=== PATIENT | male | born 1950 | race Caucasian/White ===

== ENCOUNTER 2017-10-19 12:55 | Emergency (ER) | payer MEDICARE, MEDICAID ==
[2017-10-19 13:12] VITALS: TEMP 98.1; O2SAT 99
--- NOTE | 2017-10-19 13:44 | C.PDOC ---
History Of Present Illness 67 yo male come in for evaluation of Left sided neck pain gradually developed for past 2 months. Pt reports, pain is localized over lateral aspect Left side of neck radiating down to upper back and left arm, worse with movement. Otherwise, pt denies any known direct trauma or injury, headache, dizziness, visual changes, focal deficits, CP, SOB, dyspnea, diaphoresis, palpitation, denies weakness, sensory or vascular deficits to B/L UEs. Ambulate to Ed for evaluation, not in any apparent distress. Time Seen by Provider: 10/19/17 13:13 Chief Complaint (Nursing): Upper Extremity Problem/Injury Past Medical History Vital Signs: Last Vital Signs Temp 98.1 F 10/19/17 13:11 Pulse 61 10/19/17 14:49 Resp 20 10/19/17 14:49 BP 131/85 10/19/17 14:49 Pulse Ox 99 10/19/17 14:49 - Medical History PMH: Benign Prostatic Hyperplasia Family History: States: Unknown Family Hx - Social History Hx Tobacco Use: No Hx Alcohol Use: Yes Hx Substance Use: No - Immunization History Hx Tetanus Toxoid Vaccination: No Hx Influenza Vaccination: No Hx Pneumococcal Vaccination: No Physical Exam - Physical Exam Appears: Well, Non-toxic, No Acute Distress Skin: Normal Color, Warm, Dry, No Rash Head: Normacephalic Eye(s): bilateral: PERRL Nose: No Flaring, No Discharge Oral Mucosa: Moist, No Drooling Throat: No Drooling Neck: Normal ROM, No Decreased ROM, Trachea Midline, No Midline Cervical Tenderness, No Step Off Deformity, Supple, Other (tenderness left lateral neck over trapezium muscle with mod spasm. no midline tenderness, no skin changes.) Cardiovascular: Rhythm Regular Respiratory: No Decreased Breath Sounds, No Accessory Muscle Use, No Stridor, No Wheezing Gastrointestinal/Abdominal: Soft, No Tenderness, No Distention, No Guarding Back: No CVA Tenderness, No Vertebral Tenderness, No Paraspinal Tenderness Extremity: Normal ROM, No Tenderness, No Deformity, No Swelling Neurological/Psych: Oriented x3, Normal Speech, Normal Motor, Normal Sensation, Normal Reflexes ED Course And Treatment O2 Sat by Pulse Oximetry: 99 Pulse Ox Interpretation: Normal - CT Scan/US C-SPINE CT Other Rad Studies (CT/US): Radiology Report Reviewed CT/US Interpretation: PROCEDURE: CT Cervical Spine without contrast. HISTORY: neck pain, L>R. COMPARISON: None available. TECHNIQUE: Axial computed tomography images were obtained of the cervical spine without the use of intravenous contrast. Coronal and sagittal reformatted images were created and reviewed. Radiation dose: Total exam DLP = 577.13 mGy-cm. This CT exam was performed using one or more of the following dose reduction techniques: Automated exposure control, adjustment of the mA and/or kV according to patient size, and/or use of iterative reconstruction technique. FINDINGS: VERTEBRAE: Vertebral bodies maintained in height. Normal alignment maintained. Atlantoaxial articulation and odontoid process are intact. DISCS/SPINAL CANAL/ NEURAL FORAMINA: Multi levels severe degenerative disc disease C4-5 through C7- T1. Mild central spinal stenosis C5-6. No evidence of disc herniation. PARASPINAL SOFT TISSUES: Unremarkable. OTHER FINDINGS: None. IMPRESSION: No fracture/ dislocation. Multilevel degenerative disc disease. Mild spinal stenosis C5-6. Progress Note: On re-evaluation, pt is afebrile, hemodynamicaly stable. Non- toxic. head: AT/NC. neck: Supple, (-) midline tenderness. Neuorlogicaly intact. CT results review (+) DJD, no acute finding. Pt has clinical findings c/w crvical radiculopathy. muscle straine. Pt advised. ref. to f/u with PMD, ortho, PM in 2-3 days for re-eval. return to ED if any worsening or new changes. Disposition Counseled Patient/Family Regarding: Studies Performed, Diagnosis, Need For Followup - Disposition Referrals: Vivian Osorio MD [Medical Doctor] - Disposition: HOME/ ROUTINE Disposition Time: 14:26 Condition: STABLE Additional Instructions: Take medication as prescribed Follow up with PMD, Orthopedist in 2-3 days for re-evaluation. return to ED if any worsening or new changes. Prescriptions: Ibuprofen [Motrin Tab] 600 mg PO BID #14 tab Methocarbamol [Robaxin] 500 mg PO TID #20 tab Instructions: Radiculopathy, Neck Pain Forms: [employer] (Luxembourger) - Clinical Impression Clinical Impression: Cervical radiculopathy, Cervical strain
[2017-10-19 14:49] VITALS: BP 131/85; PULSE 61; RESP 20
--- NOTE | 2017-10-19 15:01 | CT ---
PROCEDURE: CT Cervical Spine without contrast HISTORY: neck pain, L>R COMPARISON: None available. TECHNIQUE: Axial computed tomography images were obtained of the cervical spine without the use of intravenous contrast. Coronal and sagittal reformatted images were created and reviewed. Radiation dose: Total exam DLP = 577.13 mGy-cm. This CT exam was performed using one or more of the following dose reduction techniques: Automated exposure control, adjustment of the mA and/or kV according to patient size, and/or use of iterative reconstruction technique. FINDINGS: VERTEBRAE: Vertebral bodies maintained in height. Normal alignment maintained. Atlantoaxial articulation and odontoid process are intact. DISCS/SPINAL CANAL/NEURAL FORAMINA: Multi levels severe degenerative disc disease C4-5 through C7-T1. Mild central spinal stenosis C5-6. No evidence of disc herniation. PARASPINAL SOFT TISSUES: Unremarkable. OTHER FINDINGS: None. IMPRESSION: No fracture/ dislocation. Multilevel degenerative disc disease. Mild spinal stenosis C5-6.
== END 2017-10-19 15:09 | disposition home or self-care (01) ==
LOC: C.ER 12:55
DX: M54.12 Radiculopathy, cervical region (principal); S16.1XXA Strain of muscle, fascia and tendon at neck level, initial encounter; X58.XXXA Exposure to other specified factors, initial encounter

== ENCOUNTER 2018-08-02 09:33 | Emergency (ER) | payer BC, MEDICAID, MEDICARE ==
--- NOTE | 2018-08-02 09:41 | C.PDOC ---
History Of Present Illness 67 y/o male presents to the ED for evaluation of rash for 1 month. Patient states initially rash began at the left lower abdominal wall, and is now scattered in patches to the right thigh/lower leg, and right chest wall. Initial rash location is unchanged from beginning. He reports +itching. Also complains of similar rash and itchiness to testicular area. No fevers or chills. No other complaints. Time Seen by Provider: 08/02/18 09:38 Chief Complaint (Nursing): Abnormal Skin Integrity History Per: Patient History/Exam Limitations: no limitations Onset/Duration Of Symptoms: Days Current Symptoms Are (Timing): Still Present Location Of Injury: Right: Chest, Leg, Left: Abdomen Quality Of Symptoms: Itching Past Medical History Reviewed: Historical Data, Nursing Documentation, Vital Signs - Medical History PMH: Benign Prostatic Hyperplasia Family History: States: Unknown Family Hx - Social History Hx Tobacco Use: No Hx Alcohol Use: Yes Hx Substance Use: No - Immunization History Hx Tetanus Toxoid Vaccination: No Hx Influenza Vaccination: No Hx Pneumococcal Vaccination: No Review Of Systems Constitutional: Negative for: Fever, Chills Gastrointestinal: Negative for: Abdominal Pain Genitourinary: Negative for: Dysuria, Hematuria Musculoskeletal: Negative for: Back Pain Skin: Positive for: Rash (to abdomen, chest wall, and leg) Neurological: Negative for: Weakness, Numbness Physical Exam - Physical Exam Appears: Non-toxic, No Acute Distress Skin: Warm, Rash (Scattered lesions consistent w/ tinea corporis) Head: Atraumatic, Normacephalic Eye(s): bilateral: Normal Inspection, PERRL, EOMI Neck: Normal ROM Chest: Symmetrical Respiratory: No Accessory Muscle Use, Other (NARD) Extremity: Bilateral: Atraumatic, Normal ROM Neurological/Psych: Oriented x3, Normal Speech ED Course And Treatment O2 Sat by Pulse Oximetry: 100 (RA) Pulse Ox Interpretation: Normal Medical Decision Making Medical Decision Making: Impression: Tinea Patient is stable for discharge home. Counseled regarding diagnosis and treatment plan. Disposition Counseled Patient/Family Regarding: Diagnosis, Need For Followup, Rx Given - Disposition Referrals: YOUR,PMD [Other] Disposition: HOME/ ROUTINE Disposition Time: 09:56 Condition: GOOD Prescriptions: Clotrimazole 1% Cream [Lotrimin 1% CREAM] 1 applic TOP BID #1 tube Instructions: Fungal Skin Rash (DC) Forms: [employer] (Romansh) Print Language: AZERI - Clinical Impression Clinical Impression: Tinea corporis - Scribe Statement The provider has reviewed the documentation as recorded by the Abelino Thornton Provider Attestation: All medical record entries made by the Abelino were at my direction and personally dictated by me. I have reviewed the chart and agree that the record accurately reflects my personal performance of the history, physical exam, medical decision making, and the department course for this patient. I have also personally directed, reviewed, and agree with the discharge instructions and disposition.
[2018-08-02 09:47] VITALS: BP 164/64; PULSE 66; RESP 16; TEMP 98; O2SAT 100
== END 2018-08-02 10:06 | disposition home or self-care (01) ==
LOC: C.ER 09:33
DX: B35.4 Tinea corporis (principal)

== ENCOUNTER 2018-08-09 11:55 | Emergency (ER) | payer MEDICARE, MEDICAID ==
[2018-08-09 12:04] VITALS: BMI 22.4
[2018-08-09 12:11] VITALS: BP 122/77; PULSE 74; RESP 20; TEMP 98.7; O2SAT 96
--- NOTE | 2018-08-09 12:40 | C.PDOC ---
History Of Present Illness Patient is a 67 year old male who presents to the ED for reevaluation of rash on his abdomen. Patient was seen in ED on 08/02 and was diagnosed with tinea corporis, after which he was given a cream to apply. Patient states that the cream has not helped and that his rash is itchy. He denies any other complaints. Time Seen by Provider: 08/09/18 12:12 Chief Complaint (Nursing): Abnormal Skin Integrity History Per: Patient History/Exam Limitations: no limitations Current Symptoms Are (Timing): Still Present Quality Of Symptoms: Itching Recent travel outside of the [place]: No Additional History Per: Patient Past Medical History Reviewed: Historical Data, Nursing Documentation, Vital Signs Vital Signs: Last Vital Signs Temp 98.7 F 08/09/18 12:10 Pulse 74 08/09/18 12:10 Resp 20 08/09/18 12:10 BP 122/77 08/09/18 12:10 Pulse Ox 96 08/09/18 12:10 - Medical History PMH: Benign Prostatic Hyperplasia Surgical History: No Surg Hx Family History: States: Unknown Family Hx - Social History Hx Tobacco Use: No Hx Alcohol Use: Yes Hx Substance Use: No - Immunization History Hx Tetanus Toxoid Vaccination: No Hx Influenza Vaccination: No Hx Pneumococcal Vaccination: No Review Of Systems Skin: Positive for: Rash (itchy) Physical Exam - Physical Exam Appears: Non-toxic, No Acute Distress, Other (comfortable) Skin: Warm, Dry, Rash (multiple scattered erythematous lesions on abdomen well demarcated with fungal appearance) Head: Atraumatic, Normacephalic Neck: Normal ROM, Supple Chest: Symmetrical, No Deformity Cardiovascular: Rhythm Regular, No Murmur Respiratory: Normal Breath Sounds, No Rales, No Rhonchi, No Wheezing Neurological/Psych: Oriented x3, Normal Speech ED Course And Treatment O2 Sat by Pulse Oximetry: 96 (on RA) Pulse Ox Interpretation: Normal Progress Note: Plan: Claritin 10mg PO. Differnet cream prescribed for fungal rash. Patient instructed that lesions will take 4-6 weeks to clear. Disposition Counseled Patient/Family Regarding: Diagnosis, Need For Followup, Rx Given - Disposition Referrals: [facility] [Outside] Disposition: HOME/ ROUTINE Disposition Time: 12:40 Condition: STABLE Additional Instructions: SEGUIR CON RADER ICO / DARIUSA EN 1-2 PEÑA UTILICE MEDICAMENTOS CARLINE SE DIRIGE EL RASH FIOR 4-6 SEMANAS PARA BORRAR VUELVA A LA LIANG DE EMERGENCIA SI YECENIA SNTOMAS SE HACEN PEOR FOLLOW UP WITH YOUR DOCTOR/CLINIC IN 1-2 DAYS USE MEDICATION DIRECTED THE RASH WILL TAKE 4-6 WEEKS TO CLEAR RETURN TO EMERGENCY ROOM IF YOUR SYMPTOMS BECOME WORSE 169/5000 Prescriptions: Ketoconazole 2% Cr [Nizoral] 15 gm EXT DAILY #1 tube Loratadine [Claritin] 10 mg PO DAILY PRN #30 tab PRN Reason: Itching / Pruritus Instructions: Fungal Skin Rash (DC) Forms: [employer] (Turkmen) Print Language: SINHALA - Clinical Impression Clinical Impression: Tinea corporis - Scribe Statement The provider has reviewed the documentation as recorded by the Donavonibpj Solano All medical record entries made by the Donavonibpj were at my direction and persona lly dictated by me. I have reviewed the chart and agree that the record accurately reflects my personal performance of the history, physical exam, medical decision making, and the department course for this patient. I have also personally directed, reviewed, and agree with the discharge instructions and disposition.
== END 2018-08-09 13:16 | disposition home or self-care (01) ==
LOC: C.ER 11:55
DX: B35.4 Tinea corporis (principal)